=== PATIENT | male | born 1990 | race Caucasian/White ===

== ENCOUNTER 2019-12-15 08:10 | Day surgery (SDC) | payer BC, OTHER ==
[~2019-12-15] VITALS: Ht 185.4 cm; Wt 81.6 kg
--- NOTE | 2019-12-15 07:28 | H ---
[facility] [place] [address] HISTORY AND PHYSICAL Name: YONATAN CARMICHAEL Room #: [facility] [place] M..#: [id number] Admission: Attend Phys: Isidro Sharp MD Discharge: Date of : 89 Report #: [id number] THIS REPORT FOR: cc: AMINTA GONZALES Physician not on staff Isidro Sharp MD ~ CC: AMINTA Sharp Physician staff DATE OF SERVICE: 12/14/2019 DATE OF SURGERY: 12/15/2019 CHIEF COMPLAINT: Right upper lymphadenopathy. HISTORY OF PRESENT ILLNESS: The patient is a 29-year-old gentleman, originally was seen in September 2019. At that time, he had noted approximately 2-month history of a right upper neck mass ____. Given her a course of prednisone, it did disappear, but it came back rapidly. He had no other ongoing upper respiratory symptomatology at that time. I placed him on Bactrim-DS for 14 days with a followup visit as there are no other abnormalities noted on his exam; however, there has been a persistent in the size of this, so I recommended an ultrasound-guided FNA. This was accomplished and the pathology was considered to be incomplete. It was nondiagnostic but was inconclusive, but there were atypical cells present; however, clinically, they could not differentiate if there is any type of a neoplastic process present. I discussed the possibility of an open versus a core biopsy and we did perform a core biopsy; however, the core biopsy still did not show any definitive diagnosis and flow cytometry was not conclusive as well. At this point, I was in agreement to try an open biopsy. He understands the location of this mass makes a complete removal of the lymph node ____ but possible as this is around the great auricular nerve, the spinal accessory nerve, jugular vein and possibly part of the facial nerve branch. Plan will be for open biopsy with possible total removal of the lymph node versus an open biopsy of portions. Surgical risks, benefits, expected outcomes were explained to him. ALLERGIES TO MEDICATION: PENICILLIN. MEDICATIONS ON ADMISSION: None. PAST MEDICAL AND PAST SURGICAL HISTORY: Notable for abdominal surgery. FAMILY HISTORY: Noncontributory. REVIEW OF SYSTEMS: Negative for any GI, , cardiovascular, pulmonary or class [address] [address] HISTORY AND PHYSICAL Name: YONATAN CARMICHAEL Room #: [facility]..#: [id number] Admission: Attend Phys: Isidro Sharp MD Discharge: Date of : 89 Report #: [id number] B type symptoms. PHYSICAL EXAMINATION: GENERAL: This gentleman appears his stated age. VITAL SIGNS: Height of 6 feet 1 inch, weight 185 pounds. HEENT: Unremarkable for any ear, nasal or oral cavity abnormalities. Laryngeal examination previously had been unremarkable. NECK: Palpation of the neck does reveal fullness of a high right ____ lymph node in zone 2 just below the angle of mandible and abutting up against the parotid itself. This mass is mobile and is minimally tender. No other surrounding adenopathy is noted. This is the same lymph node as noted on CT scan as well. Remainder of his head and neck examination was unremarkable. Remainder of the neck exam was normal. ASSESSMENT: History of an right upper neck mass. PLAN: Will be for open biopsy. <ELECTRONICALLY SIGNED> By: Isidro Sharp MD 12/15/19 0728 [id number] Isidro Sharp MD /nt
[2019-12-15 08:39] VITALS: BP 128/88
[2019-12-15 11:11] VITALS: BP 128/88
--- NOTE | 2019-12-22 13:49 | O ---
[facility] [place] [address] OPERATIVE REPORT Name: YONATAN CARMICHAEL Room #: [facility]#: [id number] Admission: 12/15/19 Attend Phys: Isidro Sharp MD Discharge: 12/15/19 Date of : 89 Report #: [id number] THIS REPORT FOR: cc: AMINTA GONZALES Physician not on staff Isidro Sharp MD ~ CC: AMINTA Sharp Physician staff DATE OF SERVICE: 12/15/2019 PREOPERATIVE DIAGNOSIS: Right neck mass. POSTOPERATIVE DIAGNOSIS: Path pending. PROCEDURE: Excisional biopsy, left neck mass. SURGEON: Isidro Sharp MD ANESTHESIA: General endotracheal. INDICATION: See H and P. FINDINGS: The patient noted swelling in the right upper jugulodigastric area. Previous fine needle and core biopsies were inconclusive. TECHNIQUE: After obtaining consent from the patient, I identified the area of concern with the patient preoperatively and this was marked in the preop holding area. He was brought back to the operating room and appropriate timeout was performed. General oral endotracheal anesthesia was obtained. He was placed on modified neck extension with a small shoulder roll. The head was turned to the left exposing the right upper neck. The neck was prepped and draped in usual sterile fashion, 4 mL of 1% Xylocaine was injected subcutaneously along the anticipated incision line, which essentially ran along the anterior border of the right SCM at the mastoid tip inferiorly approximately 4 cm. A sharp incision was made with a scalpel through skin, subcutaneous tissue and platysma. Starting superiorly, parotid fascia was identified and dissected through. The great auricular nerve was identified and was preserved during the entire course from the posterior flap to the anterior flap and we also preserved the branch that goes superior towards the earlobe. This was pushed superiorly to be out of the area of dissection. I continued dissecting along the anterior border of the SCM. In the mid portion of the dissection, I came across to a lymph node. This was dissected away from surrounding tissue. There was some scarification around this suggesting this may have been a lymph node that was [facility] [address] [place] [address] OPERATIVE REPORT Name: YONATAN CARMICHAEL Room #: [facility] [place].#: [id number] Admission: 12/15/19 Attend Phys: Isidro Sharp MD Discharge: 12/15/19 Date of : 89 Report #: [id number] biopsied. The specimen was removed in toto and sent to pathology for permanent sectioning and was placed in saline for preservation. I continued to open the plane anterior to the SCM down where the external jugular vein crosses over the SCM. This area was thoroughly explored down to, but not into the carotid sheath and up to where the posterior belly of digastric was visualized. There were few tiny lymph nodes in this area that ____ felt to be even close to pathologically enlarged. I checked up to the parotid tissue and underneath the tail of the parotid, did not see or feel any mass in that area. I was able to palpate the mastoid tip and the transverse process and did not feel any masses in this area. I added anesthesia, then turned the patient's head to midline. I was able to palpate the anterior triangle of the neck in this zone and did not appreciate any other masses. The head was then turned back to re-expose the wound. Having thoroughly explored the area, I then checked the CT scan and visualized the area where the mass was located and the CT scan confirmed that this area had been adequately explored. At this point, the wound was thoroughly irrigated with saline. The effluent returned in clear. Hemostasis was well maintained. The great auricular nerve was preserved in its entirety. The platysmal layer was closed with 4-0 Vicryl followed by skin closure with a 5-0 nylon. A dressing was applied. He was turned back to anesthesia where he was lightened, extubated and taken to recovery room in stable condition. ESTIMATED BLOOD LOSS: Less than 10 mL. <ELECTRONICALLY SIGNED> By: Isidro Sharp MD 12/22/19 1349 [id number] Isidro Sharp MD /nt
== END 2019-12-15 11:50 | disposition home or self-care (01) ==
LOC: TBA 08:10 → OR 08:10
DX: R59.0 Localized enlarged lymph nodes (principal); Z98.890 Other specified postprocedural states; Z90.49 Acquired absence of other specified parts of digestive tract; Z88.0 Allergy status to penicillin
CPT/HCPCS: 50010; 50101; 50386; 50398; 50443; 50942; 54118; 56524; 56528; 57006; 62110; 62900; 70005